=== PATIENT | male | born 1980 | race Caucasian/White ===

== ENCOUNTER → 2020-09-07 08:44 | Outpatient (CLI) | payer OTHER, MEDICAID, SELFPAY ==
[2020-09-07 10:44] LABS: Alanine Aminotransferase 33 IU/L (<50); Albumin 4.4 g/dL (3.5-5.0); Albumin Globulin Ratio 1.5 (1.0-2.8); Alkaline Phosphatase 94 U/L (38-126); Aspartate Aminotransferase 31 IU/L (17-59); BUN Creatinine Ratio 18.3 (6-22); Bilirubin Total 0.2 mg/dL (0.2-1.3); Blood Urea Nitrogen 15 mg/dL (9-20); Calcium 10.4 mg/dL (8.4-10.2); Carbon Dioxide 31 mmol/L (22-32); Chloride 102 mmol/L (98-107); Cholesterol 233 mg/dL (140-199); Estimated Glomerular Filt Rate > 60.0 mL/min (>60); Glucose 91 mg/dL (70-100); HDL Cholesterol 57 mg/dL (40-60); HEMOLYSIS < 15 (0-50); LDL Cholesterol Calculated 149 mg/dL (<100); Potassium 4.1 mmol/L (3.4-5.1); Sodium 142 mmol/L (137-145); Total Protein 7.4 g/dL (6.3-8.2); Triglycerides 136 mg/dL (35-150)
== END ==
PROVIDERS: PCP Internal Medicine; Referring Provider Internal Medicine; Visit Provider Internal Medicine
DX: B19.20 Unspecified viral hepatitis C without hepatic coma (principal); M06.9 Rheumatoid arthritis, unspecified; Z13.1 Encounter for screening for diabetes mellitus; Z13.220 Encounter for screening for lipoid disorders
CPT/HCPCS: 36415; 80053; 80061

== ENCOUNTER → 2020-09-21 08:14 | Outpatient (CLI) | payer OTHER, MEDICAID, SELFPAY ==
[2020-09-21 08:54] LABS: COVID19 -Nasal RAPID Negative (Negative)
== END ==
PROVIDERS: PCP Internal Medicine; Visit Provider Student in an Organized Health Care Education/Training Program
DX: Z20.822 Contact with and (suspected) exposure to COVID-19 (principal)
CPT/HCPCS: 87635

== ENCOUNTER 2021-05-22 08:38 | Emergency (ER) | payer OTHER, MEDICAID, SELFPAY ==
--- NOTE | 2021-05-22 08:40 | DI.RAD.S_ITS ---
PROCEDURE: XR CHEST 1V INDICATIONS: chest pain TECHNIQUE: One view of the chest was acquired. COMPARISON: None. FINDINGS: Surgical changes and devices: None. Lungs and pleura: Lungs are clear. No pleural effusions or pneumothorax. Mediastinum: Mediastinal contours appear normal. Heart size is normal. Bones and chest wall: No suspicious bony lesions. Overlying soft tissues appear unremarkable. IMPRESSION: No acute cardiopulmonary pathology. Dictated by: Scottie Mckoy M.D. on 05/22/2021 at 9:04 Approved by: Scottie Mckoy M.D. on 05/22/2021 at 9:04
[2021-05-22 08:48] VITALS: BP 133/87; PULSE 87; RESP 20; TEMP 36.5; O2SAT 98; BMI 23.1
[2021-05-22 09:01] LABS: Add Manual Diff / Slide Review NO; Basophils Absolute Auto 100 /uL (0-100); Basophils Percent Auto 0.7 % (0-2); Eosinophils Absolute Auto 600 /uL (0-450); Eosinophils Percent Auto 7.6 % (2-4); Hematocrit 46.9 % (41-53); Hemoglobin 16.3 g/dL (13.5-17.5); Lymphocytes Absolute Auto 1900 /uL (1100-4500); Lymphocytes Percent Auto 23.1 % (25-40); Mean Corpuscular HGB Conc 34.8 % (30-36); Mean Corpuscular Hemoglobin 30.9 PG (26-34); Monocytes Absolute Auto 700 /uL (0-900); Monocytes Percent Auto 8.3 % (3-14); Neutrophils Absolute Auto 4900 /uL (1500-7000); Neutrophils Percent Auto 60.3 % (50-75); Platelet Count 274 X10^3/uL (150-400); Red Blood Cell Count 5.26 X10^6/uL (4.5-5.9); Red Cell Distribution Width 12.8 % (11.6-14.8); White Blood Cell Count 8.2 X10^3/uL (4.5-11.0)
[2021-05-22 09:10] LABS: Alanine Aminotransferase 25 IU/L (<50); Albumin 4.7 g/dL (3.5-5.0); Albumin Globulin Ratio 1.4 (1.0-2.8); Alkaline Phosphatase 69 U/L (38-126); Aspartate Aminotransferase 27 IU/L (17-59); BUN Creatinine Ratio 16.3 (6-22); Bilirubin Total 0.5 mg/dL (0.2-1.3); Blood Urea Nitrogen 14 mg/dL (9-20); Calcium 9.7 mg/dL (8.4-10.2); Carbon Dioxide 31 mmol/L (22-32); Chloride 103 mmol/L (98-107); Creatine Kinase 60 U/L (55-170); Estimated Glomerular Filt Rate > 60.0 mL/min (>60); Globulin 3.3 g/dL (1.7-4.1); Glucose 82 mg/dL (70-100); HEMOLYSIS < 15 (0-50); Lipase 58 U/L (23-300); Potassium 3.9 mmol/L (3.4-5.1); Sodium 138 mmol/L (137-145)
--- NOTE | 2021-05-22 09:10 | ED_ITS ---
HPI - Arrhythmia/Palpitations General Chief Complaint: Arrhythmia/Palpitations Stated Complaint: Heart Palpitations Time Seen by Provider: 05/22/21 09:10 Source: patient Mode of arrival: Ambulatory Limitations: no limitations History of Present Illness HPI narrative: This is a 40-year-old male who comes to the emergency department with complaint of palpitations or irregular extra beats. He states it has been happening this morning. He states it seems to be related when he smokes or drinks caffeine. He has had a half cup of coffee this morning and has smoked quite a bit this morning. Patient was concerned as he has had a history of pericarditis. He states he has always been discharged home from the emergency department but was on aspirin and had symptoms or issues for about 9 months. Patient states his just felt a little irregular. He denies any fevers, no cold cough or congestion. No chest pain, no shortness of breath, no syncope but felt a little lightheaded today. No nausea or vomiting. No swelling in his extremities. No diarrhea constipation and no urinary symptoms. He does not have a history of arrhythmias. He saw Cardiology after his diagnosis of pericarditis but does not follow with him currently. He has not any daily medications. He has had prior arthroscopic knee surgeries in [facility] but nothing in the last 6 months to a year. No alcohol. He does smoke quite a bit daily. He denies any illicit or THC. He states he does drink coffee regularly. He states they never found out why he has the pericarditis that he is aware of. He denies any cardiac, pulmonary embolic history in his close family but his grandparents did have CHF and arrhythmias. His primary care is Dr. Goldberg. Related Data Previous Rx's Medication Instructions Recorded cyclobenzaprine 5 mg tablet 5 mg PO TID PRN #30 tab 10/18/20 Allergies Allergy/AdvReac Type Severity Reaction Status Date / Time No Known Drug Allergies Allergy Verified 05/22/21 08:48 Review of Systems Review of Systems ROS Unobtainable: All systems reviewed & are unremarkable except as noted in HPI and below Patient History Medical History Anxiety (~2012) Depression (~1999) Hepatitis C (~2012) Pericarditis (~2013) PTSD (post-traumatic stress disorder) (~2011) Rheumatoid arthritis (~2009) Substance abuse (~2007) Wears glasses Surgical History Anesthesia S/P arthroscopic knee surgery (~09/2009) S/P LASIK surgery of both eyes (~06/2003) Status post knee surgery Status post LASIK surgery Family History Mother Hyperlipidemia Hypertension Father Fall Grandmother Diabetes mellitus History of heart disease Hypertension Grandfather Congestive heart failure Hypertension Grandfather History of heart disease Grandmother Cancer Social History Smoking Status: Current every day smoker Smoking Status: Current every day smoker tobacco type: cigarettes Substance Use Type: does not use Exam Narrative Exam Narrative: GENERAL: Alert and oriented x three, male is in mild distress. HEENT: Head normocephalic, atraumatic, EOMI, pupils reactive, face symmetric, moist mucous membranes NECK: Supple, full range of motion CARDIOVASCULAR: Regular rate and rhythm without murmurs, rubs or gallops. No JVD. No swelling bilateral lower extremities. RESPIRATORY: Breath sounds equal bilaterally, no wheezes rales or rhonchi. No tachypnea accessory muscle use. ABDOMEN: Soft, nontender. Normoactive bowel sounds all 4 quadrants. No guarding or rebound, rigidity, no mass : No CVA tenderness EXTREMITIES: Normal range of motion, no clubbing or edema. Neurovascularly intact NEUROLOGICAL: Cranial nerves II through XII grossly intact. Moving all extremities SKIN: Warm, dry, no petechiae, no rashes or lesions. Initial Vital Signs Initial Vital Signs: Vital Signs Temperature 97.7 F 05/22/21 08:48 Pulse Rate 87 05/22/21 08:48 Respiratory Rate 20 05/22/21 08:48 Blood Pressure 133/87 05/22/21 08:48 Pulse Oximetry 98 05/22/21 08:48 Scores HEART Score Heart Score history: Slightly Suspicious Heart Score EKG: Non-Specific repolarization disturbance Heart Score Age: < 45 years old Heart Score risk factors: No known risk factors Heart Score troponin: < or = to normal limit Heart Score Total: 1 PERC Score Age greater than or equal to 50 years: No Heart rate greater than or equal to 100 bpm: No Room Air O2 Sat less than 95%: No Unilateral leg swelling: No Recent trauma or surgery: No Hemoptysis: No Prior PE or DVT: No Hormone Use: No Total PERC Score: 0 Course Orders Ordered: ED Orders 05/22/21 08:40 XR chest 1V Stat EKG-12 Lead Stat 05/22/21 08:50 Complete Blood Count AUTO DIFF Stat Comprehensive Metabolic Panel Stat Lipase Stat Magnesium Stat Troponin & CK Cardiac Panel Stat 05/22/21 09:11 CRP [C-Reactive Protein Quant] Stat ESR [Erythrocyte Sedimentation Rate] Stat Vital Signs Vital signs: Vital Signs - 8 hr 05/22/21 08:48 Temperature 97.7 F Pulse Rate 87 Respiratory Rate 20 Blood Pressure 133/87 Pulse Oximetry 98 MDM - Arrhythmia/Palpitations Lab Data Result diagrams: 05/22/21 08:50 05/22/21 08:50 Labs: Lab Results 05/22/21 05/22/21 05/22/21 Range/Units 08:50 08:50 08:50 WBC 8.2 (4.5-11.0) X10^3/uL RBC 5.26 (4.5-5.9) X10^6/uL Hgb 16.3 (13.5-17.5) g/dL Hct 46.9 (41-53) % MCV 89.0 (80-100) fL MCH 30.9 (26-34) PG MCHC 34.8 (30-36) % RDW 12.8 (11.6-14.8) % Plt Count 274 (150-400) X10^3/uL Neut % (Auto) 60.3 (50-75) % Lymph % (Auto) 23.1 L (25-40) % [place] % (Auto) 8.3 (3-14) % Eos % (Auto) 7.6 H (2-4) % Baso % (Auto) 0.7 (0-2) % Neut # (Auto) 4900 (0768-8499) /uL Lymph # (Auto) 1900 (8876-1622) /uL [place] # (Auto) 700 (0-900) /uL Eos # (Auto) 600 H (0-450) /uL Baso # (Auto) 100 (0-100) /uL ESR 2 (0-15) MM/HR Sodium 138 (137-145) mmol/L Potassium 3.9 (3.4-5.1) mmol/L Chloride 103 (98-107) mmol/L Carbon Dioxide 31 (22-32) mmol/L BUN 14 (9-20) mg/dL Creatinine 0.86 (0.66-1.25) mg/dL Estimated GFR > 60.0 (>60) mL/min BUN/Creatinine Ratio 16.3 (6-22) Glucose 82 (70-100) mg/dL Calcium 9.7 (8.4-10.2) mg/dL Magnesium 2.0 (1.6-2.3) mg/dL Total Bilirubin 0.5 (0.2-1.3) mg/dL AST 27 (17-59) IU/L ALT 25 (<50) IU/L Alkaline Phosphatase 69 (38-126) U/L Total Creatine Kinase 60 (55-170) U/L CK-MB (CK-2) TNP CK-MB (CK-2) Rel Index TNP Troponin I < 0.012 (0.01-0.034) ng/mL C-Reactive Protein (<1.0) mg/dL Total Protein 8.0 (6.3-8.2) g/dL Albumin 4.7 (3.5-5.0) g/dL Globulin 3.3 (1.7-4.1) g/dL Albumin/Globulin Ratio 1.4 (1.0-2.8) Lipase 58 (23-300) U/L 12/20/21 Range/Units 08:50 WBC (4.5-11.0) X10^3/uL RBC (4.5-5.9) X10^6/uL Hgb (13.5-17.5) g/dL Hct (41-53) % MCV (80-100) fL MCH (26-34) PG MCHC (30-36) % RDW (11.6-14.8) % Plt Count (150-400) X10^3/uL Neut % (Auto) (50-75) % Lymph % (Auto) (25-40) % [place] % (Auto) (3-14) % Eos % (Auto) (2-4) % Baso % (Auto) (0-2) % Neut # (Auto) (3403-9552) /uL Lymph # (Auto) (2497-9233) /uL [place] # (Auto) (0-900) /uL Eos # (Auto) (0-450) /uL Baso # (Auto) (0-100) /uL ESR (0-15) MM/HR Sodium (137-145) mmol/L Potassium (3.4-5.1) mmol/L Chloride (98-107) mmol/L Carbon Dioxide (22-32) mmol/L BUN (9-20) mg/dL Creatinine (0.66-1.25) mg/dL Estimated GFR (>60) mL/min BUN/Creatinine Ratio (6-22) Glucose (70-100) mg/dL Calcium (8.4-10.2) mg/dL Magnesium (1.6-2.3) mg/dL Total Bilirubin (0.2-1.3) mg/dL AST (17-59) IU/L ALT (<50) IU/L Alkaline Phosphatase (38-126) U/L Total Creatine Kinase (55-170) U/L CK-MB (CK-2) CK-MB (CK-2) Rel Index Troponin I (0.01-0.034) ng/mL C-Reactive Protein < 0.5 (<1.0) mg/dL Total Protein (6.3-8.2) g/dL Albumin (3.5-5.0) g/dL Globulin (1.7-4.1) g/dL Albumin/Globulin Ratio (1.0-2.8) Lipase (23-300) U/L Imaging Data Chest x-ray: Radiologist's Impresson: Michael Villegas??40??M??1980 ? Allergy/Adv: No Known Drug Allergies Close Chest X-Ray (Signed) Scottie Mckoy - 05/22/21 Launch?[address] [address] XRay Report Signed Patient: Michael Villegas MR#: [id number] : 1980 Acct:[id number] Age/Sex: 40 / M Date of Service: 05/22/21 Loc: ED Accession Number: [id number] ?? Procedure: XR chest 1V Ordering Provider: Ava Fernandez D.O. PROCEDURE:? XR CHEST 1V ? INDICATIONS:? chest pain ? TECHNIQUE:? One view of the chest was acquired.? ? COMPARISON:? None. ? FINDINGS:? ? Surgical changes and devices:? None.? ? Lungs and pleura:? Lungs are clear.? No pleural effusions or pneumothorax.? ? Mediastinum:? Mediastinal contours appear normal.? Heart size is normal.? ? Bones and chest wall:? No suspicious bony lesions.? Overlying soft tissues appear unremarkable.? ? IMPRESSION:? No acute cardiopulmonary pathology. ? ? Dictated by: Scottie Mckoy M.D. on 05/22/2021 at 9:04 ? ? Approved by: Scottie Mckoy M.D. on 05/22/2021 at 9:04?? ECG Data Attestation: I personally reviewed and interpreted this ECG as follows: Prior ECG tracings: available for review Interpretation: Sinus tachycardia rate of 140 MA 124 QRS 86 and QTC of 445. Patient has what appears to be some mild ST elevation in lateral leads and 1 questionably 2. Patient has prior EKG from 03/16 which appears fairly similar lateral leads V4 5 6 slightly changed. MDM Narrative Medical decision making narrative: This is a 40-year-old male with intermittent palpitations which have resolved. Patient does not have any clear acute EKG changes. He does have a history significant for pericarditis. His labs are reassuring with a negative ESR and CRP, troponin no other changes. He has not any chest pain or shortness of breath or other symptoms. He does find it is worse with caffeine and tobacco which he has had both this morning. We discussed decreasing his intake continuing to monitor. I feel this time he is appropriate for discharge with follow-up with primary care if he continues to have symptoms. All questions answered. Return precautions discussed. Discharge Plan Departure Patient Disposition: Home Clinical Impression: Palpitations Activity Restrictions/Additional Instructions: Follow-up with Dr. Goldberg if you continue to have symptoms. If this occurs frequently they may set you up for a Holter monitor or ZIO patch. Call for an appointment. I would recommend increasing your caffeine intake as well as cigarette smoking as this can cause palpitations. Please return for new chest pain, shortness of breath, persistently fast or irregular heartbeat, lightheadedness or passing out, new swelling in her extremities, vomiting or other new or concerning symptoms. Prescriptions: No Action cyclobenzaprine 5 mg tablet 5 mg PO TID PRN (Reason: muscle spasm) Qty: 30 0RF Rx Instructions: Take 1-2 tablets by mouth every 8 hours as needed for muscle spasm. Referrals: Andry Goldberg MD [Primary Care Provider] -
[2021-05-22 09:22] LABS: Troponin I < 0.012 ng/mL (0.01-0.034)
[2021-05-22 09:25] LABS: C-Reactive Protein Quant < 0.5 mg/dL (<1.0)
[2021-05-22 09:30] LABS: Erythrocyte Sedimentation Rate 2 MM/HR (0-15)
[2021-05-22 10:10] VITALS: BP 128/78; PULSE 70; RESP 17; O2SAT 99
== END 2021-05-22 10:10 | disposition home or self-care (01) ==
PROVIDERS: Emergency Provider Emergency Medicine; PCP Internal Medicine
DX: R00.2 Palpitations (principal); F17.210 Nicotine dependence, cigarettes, uncomplicated
CPT/HCPCS: 36415; 71045; 80053; 82550; 83690; 83735; 84484; 85025; 85651; 86140; 93005; 99284

== ENCOUNTER 2022-10-29 08:12 | Emergency (ER) | payer OTHER, MEDICAID, SELFPAY ==
[2022-10-29 08:16] VITALS: BP 133/79; PULSE 93; RESP 16; TEMP 36.3; O2SAT 100; BMI 25.0
--- NOTE | 2022-10-29 08:18 | ED.DENTAL ---
HPI - Dental/Oral General Chief complaint: Dental/Oral Stated complaint: bad tooth infected pain up to ear down to jaw Time Seen by Provider: 10/29/22 08:18 Source: patient, RN notes reviewed and old records reviewed Mode of arrival: Ambulatory Limitations: no limitations History of Present Illness HPI Narrative: This is a 42-year-old male with history of pericarditis in 2013, patient states it may have been related to drug use at time. Patient presents with complaint of right posterior molar cracked and concern for possible infection. 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 He states occasionally pieces of tooth will come out and he noticed larger piece in the last day or so. Patient has had some swelling he has not had any drainage bloody or purulent. He denies fevers. He is had a mild swelling states that the jaw area. He is not had any lumps or signs of abscess. He denies any swelling of his airway. No sore throat. No ear pain. Patient has had issues on and off at this location. Reached out to [facility] where he has been seen before, it is a holiday today so he was asked to call 1st thing in the morning. Patient tried ibuprofen at home without much help and Anbesol topically. Denies any daily medications. He is had Lasix, knee surgery. Denies any drug allergies. He smokes approximately a pack per day, denies illicit. No alcohol. Related Data Previous Rx's Medication Instructions Recorded penicillin V potassium 500 mg 500 mg PO Q6H 10 days #40 tabs 10/29/22 tablet tramadol 50 mg tablet 50 mg PO Q6H PRN pain #10 tabs 10/29/22 Allergies Allergy/AdvReac Type Severity Reaction Status Date / Time No Known Drug Allergies Allergy Verified 10/29/22 08:21 Review of Systems Review of Systems ROS Unobtainable: All systems reviewed & are unremarkable except as noted in HPI and below Patient History Medical History Anxiety (~2012) Depression (~1999) Hepatitis C (~2012) Pericarditis (~2013) PTSD (post-traumatic stress disorder) (~2011) Rheumatoid arthritis (~2009) Substance abuse (~2007) Wears glasses Surgical History Anesthesia S/P arthroscopic knee surgery (~09/2009) S/P LASIK surgery of both eyes (~06/2003) Status post knee surgery Status post LASIK surgery Family History Mother Hyperlipidemia Hypertension Father Fall Grandmother Diabetes mellitus History of heart disease Hypertension Grandfather Congestive heart failure Hypertension Grandfather History of heart disease Grandmother Cancer Social History Smoking Status: Current every day smoker Smoking Status: Current every day smoker tobacco type: cigarettes Substance Use Type: does not use Exam Narrative Exam Narrative: GEN: well nourished, well appearing male, alert and oriented x 3, patient appears to be in no mild distress. HEENT: Atraumatic, pupils are equal round reactive to light, extraocular movements are intact, nares are clear, TMs are clear with no fluid, there is no conjunctival pallor. Throat is clear without any exudates, erythema, tonsillar enlargement or uvular deviation, patient has obvious crack in the tooth at number 32. Patient has poor dentition throughout. Slight swelling. No fluctuance. No obvious drainable abscess. No swelling of the oropharynx. Normal speech. HEART: Regular rate and rhythm without murmur, clicks, rubs. LUNGS:Lungs clear to auscultation, no wheezes, rales, crackles, chest moves symmetrically ABD:bowel sounds normal, soft, non-tender, no guarding, rebound, rigidity, no masses noted, no hepatosplenomegaly MSCL: Non-tender, no muscle atrophy, muscles strength 5/5 upper and lower extremities, full range of motion, normal gait NEURO:CN 2-12 intact, sensation normal Initial Vital Signs Initial Vital Signs: Vital Signs Temperature 97.4 F L 10/29/22 08:16 Pulse Rate 93 H 10/29/22 08:16 Respiratory Rate 16 10/29/22 08:16 Blood Pressure 133/79 10/29/22 08:16 Pulse Oximetry 100 10/29/22 08:16 Oxygen Delivery Method Room Air 10/29/22 08:16 Course Vital Signs Vital signs: Vital Signs - 8 hr 10/29/22 08:16 Temperature 97.4 F L Pulse Rate 93 H Respiratory Rate 16 Blood Pressure 133/79 Pulse Oximetry 100 Oxygen Delivery Method Room Air MDM - Dental/Oral MDM Narrative Medical decision making narrative: This is a 42-year-old male with complaint of dental pain he does have a cracked tooth, discussed follow up with dentist. There is some mild swelling so will cover with antibiotic, ibuprofen, Tylenol PRN for pain as well as short course narcotic pain medication. Patient has already reached out to [facility] to set up an appointment. Discussed return precautions. All questions answered. Discharge Plan Departure Patient Disposition: Home Clinical Impression: Broken or cracked tooth, nontraumatic, Dental infection Activity Restrictions/Additional Instructions: Please follow-up with [facility] dental office for treatment of your cracked tooth. Take antibiotics until completely gone. You can take ibuprofen up to 600 mg every 6 hours and/or Tylenol up to a 1000 mg every 8 hours. You can take tramadol 1-2 tablets every 6 hours as needed. Prescription sent to [facility] in [place] Please return for fevers, increasing swelling, swelling of the airway, tongue, lips, difficulty with breathing, changes to your voice, new facial swelling redness or signs of infection or other new or concerning changes. Prescriptions: New penicillin V potassium 500 mg tablet 500 mg PO Q6H 10 Days Qty: 40 0RF tramadol 50 mg tablet 50 mg PO Q6H PRN (Reason: pain) Qty: 10 0RF Referrals: Andry Goldberg MD [Primary Care Provider] - Stand Alone Forms: Patient Portal/API
== END 2022-10-29 08:37 | disposition home or self-care (01) ==
PROVIDERS: Emergency Provider Emergency Medicine; PCP Internal Medicine
DX: K08.89 Other specified disorders of teeth and supporting structures (principal); K04.7 Periapical abscess without sinus
CPT/HCPCS: 99281